=== PATIENT | female | born 1930 | race Caucasian/White ===

== ENCOUNTER 2016-06-14 13:00 | Outpatient (RCR) | payer MEDICARE, OTHER ==
--- OUTSIDE RECORDS SUMMARY | 2016-03-27 12:57 | XMS REPORT | Continuity of Care Document ---
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 Medications Current Home Medications Medication Dose Units Route Directions Days/Qty Instructions Start Date Linagliptin 5 Mg 5 Mg Oral Bedtime 01/27/16 Furosemide 20 Mg 20 Mg Oral Daily 01/27/16 Carvedilol 25 Mg 25 Mg Oral Twice A Day 01/27/16 Atorvastatin Calcium 80 Mg 80 Mg Oral Bedtime 01/27/16 Aspirin 81 Mg 81 Mg Oral Bedtime 01/29/16 Glimepiride 4 Mg 4 Mg Oral Daily 30 02/27/16 Celecoxib 100 Mg 100 Mg Oral Daily 30 02/28/16 Irbesartan 150 Mg 300 Mg Oral Daily 30 02/28/16 Past Home Medications Medication Directions Ordered Status Celecoxib 200 Mg Capsule, 200 Mg Oral Daily 01/27/16 Discontinued Irbesartan 150 Mg Tablet, 150 Mg Oral Daily 01/27/16 Discontinued Glimepiride 4 Mg Tablet, 4 Mg Oral Twice A Day 01/27/16 Discontinued Social History Social History Problem Response Recorded Date/Time Alcohol Use Denies Use 01/29/2016 2:20pm Recreational Drug Use No 01/29/2016 2:20pm Recent Foreign Travel No 01/29/2016 2:08pm Recent Infectious Disease Exposure No 01/29/2016 2:08pm Hospitalization with Isolation Denies 02/28/2016 10:57am Sexually Transmitted Disease No 01/29/2016 2:20pm Smoking Status Never a Smoker 01/29/2016 2:16pm Recent Hopitalizations No 01/29/2016 2:20pm Sexually Transmitted Disease No 01/29/2016 2:20pm Hospitalization with Isolation Denies 02/28/2016 10:57am Query Response Start Date Stop Date Smoking Status Never a Smoker Hospital Discharge Instructions No hospital discharge instructions. Plan of Care Discharge Date 02/28/16 10:47am Disposition 09 ADMITTED INPATIENT Instructions/Education Provided Diabetes Type 2 (DC) Right-Side Stroke (DC) Forms Provided Rehab Team Conference Summary Prescriptions See Medication Section Referrals NOLVIA ROBERTO MD (Unspecified) - 03/06/16 Address: [address] [place] [address], [address] [place] [phone] Reason(s) for Referral: Follow-up with Dr. Roberto on 2015 at 10:00 AM. (Physical Medicine and Rehab) - (Physical Medicine and Rehab) - (Unspecified) - Care Plan and Goals Functional Status Query Response Date Recorded Patient Orientation Normal For Age February 27, 2016 1:38pm Patient Orientation Person Place Time Situation Eyes Open February 28, 2016 10:57am Comprehension Ability Understands Concepts February 28, 2016 8:00am Allergies, Adverse Reactions, Alerts Allergen Type Severity Reaction Status Last Updated Codeine Allergy Unknown NAUSEA Active 01/27/16 Immunizations No immunization records. Vital Signs Acute Vital Signs Vital Response Date/Time Temperature (Fahrenheit) 97.5 degrees F (97.6 - 99.5) 02/28/2016 10:50am Temperature (Calculated Celsius) 36.39290 degrees C (36.4 - 37.5) 02/28/2016 5:23am Temperature Source Tympanic 02/28/2016 10:50am Pulse Rate (adult) 73 bpm (60 - 90) 02/28/2016 10:50am Respiratory Rate 18 bpm (12 - 24) 02/28/2016 10:50am O2 Sat by Pulse Oximetry 94 % (88 - 100) 02/28/2016 10:50am Blood Pressure 103/66 mm Hg 02/28/2016 10:50am Blood Pressure Mean 103 mm Hg 02/28/2016 5:23am Pain Numeric Pain Scale 0-No Pain 02/28/2016 10:50am Height (Feet) 5 feet 01/29/2016 2:08pm Height (Inches) 5.00 inches 01/29/2016 2:08pm Height (Calculated Centimeters) 165.234164 cm 01/29/2016 2:08pm Weight (Pounds) 190 pounds 02/26/2016 5:53am Weight (Ounces) 2.0 oz 02/19/2016 6:00am Weight (Calculated Grams) 61807.551 gm 02/26/2016 5:53am Weight (Calculated Kilograms) 86.667768 kilograms 02/26/2016 5:53am Calculated BMI 31.3 01/29/2016 2:08pm Capillary Refill Capillary Refill Less Than 3 Seconds 01/29/2016 8:20am Results Laboratory Results Test Name Result Units Flags Reference Collection Date/Time Result Date/ Time Comments White Blood Count 7.5 10^3/uL 4.3-11.0 01/27/2016 10:50am 01/27/2016 11 :01am Red Blood Count 4.93 10^6/uL 4.35-5.85 01/27/2016 10:50am 01/27/2016 11 :01am Hemoglobin 14.0 G/DL 11.5-16.0 01/27/2016 10:50am 01/27/2016 11:01am Hematocrit 42 % 35-52 01/27/2016 10:50am 01/27/2016 11:01am Mean Corpuscular Volume 85 FL 80-99 01/27/2016 10:50am 01/27/2016 11: 01am Mean Corpuscular Hemoglobin 28 PG 25-34 01/27/2016 10:50am 01/27/2016 11:01am Mean Corpuscular Hemoglobin Concent 33 G/DL 32-36 01/27/2016 10:50am 11:01am Red Cell Distribution Width 13.9 % 10.0-14.5 01/27/2016 10:50am 2015 11:01am Platelet Count 267 10^3/uL 130-400 01/27/2016 10:50am 01/27/2016 11: 01am Mean Platelet Volume 10.2 FL 7.4-10.4 01/27/2016 10:50am 01/27/2016 11: 01am Neutrophils (%) (Auto) 68 % 42-75 01/27/2016 10:50am 01/27/2016 11: 01am Lymphocytes (%) (Auto) 20 % 12-44 01/27/2016 10:50am 01/27/2016 11: 01am Monocytes (%) (Auto) 8 % 0-12 01/27/2016 10:50am 01/27/2016 11:01am Eosinophils (%) (Auto) 4 % 0-10 01/27/2016 10:50am 01/27/2016 11:01am Basophils (%) (Auto) 1 % 0-10 01/27/2016 10:50am 01/27/2016 11:01am Neutrophils # (Auto) 5.1 X 10^3 1.8-7.8 01/27/2016 10:50am 01/27/2016 11:01am Lymphocytes # (Auto) 1.5 X 10^3 1.0-4.0 01/27/2016 10:50am 01/27/2016 11:01am Monocytes # (Auto) 0.6 X 10^3 0.0-1.0 01/27/2016 10:50am 01/27/2016 11: 01am Eosinophils # (Auto) 0.3 10^3/uL 0.0-0.3 01/27/2016 10:50am 01/27/2016 11:01am Basophils # (Auto) 0.0 10^3/uL 0.0-0.1 01/27/2016 10:50am 01/27/2016 11 :01am Prothrombin Time 13.1 SEC 12.2-14.7 01/27/2016 10:50am 01/27/2016 11: 11am INR Comment 1.0 0.8-1.4 01/27/2016 10:50am 01/27/2016 11:11am INTERPRETIVE DATA SUGGESTED THERAPEUTIC RANGE FOR INR'S: VENOUS THROMBOSIS, PULMONARY EMBOLISM, OR PREVENTION OF SYSTEMIC EMBOLISM (EG. IN ATRIAL FIBRILLATION): 2.0 - 3.0 MECHANICAL PROSTHETIC HEART VALVES: 2.5 - 3.5* *NOTE: INR'S UP TO 4.5 MAY BE NECESSARY IN SELECTED GROUPS OF HIGH RISK PATIENTS. [employer] CONSENSUS CONFERENCE ON ANTITHROMBOTIC THERAPY (2000). Activated Partial Thromboplast Time 27 SEC 24-35 01/27/2016 10:50am 02/2016 11:11am D-Dimer 1.86 UG/ML H 0.00-0.49 01/27/2016 10:50am 01/27/2016 11:17am Urine Color YELLOW 01/27/2016 11:00am 01/27/2016 11:17am Urine Clarity CLEAR 01/27/2016 11:00am 01/27/2016 11:17am Urine pH 5 5-9 01/27/2016 11:00am 01/27/2016 11:17am Urine Specific [place] 1.010 * 1.016-1.022 01/27/2016 11:00am 2015 11:17am Urine Protein NEGATIVE NEGATIVE 01/27/2016 11:00am 01/27/2016 11: 17am Urine Glucose (UA) NEGATIVE NEGATIVE 01/27/2016 11:00am 01/27/2016 11 :17am Urine RBC (Auto) 1+ * NEGATIVE 01/27/2016 11:00am 01/27/2016 11:17am Urine Ketones NEGATIVE NEGATIVE 01/27/2016 11:00am 01/27/2016 11: 17am Urine Nitrite NEGATIVE NEGATIVE 01/27/2016 11:00am 01/27/2016 11: 17am Urine Bilirubin NEGATIVE NEGATIVE 01/27/2016 11:00am 01/27/2016 11: 17am Urine Urobilinogen NORMAL MG/DL NORMAL 01/27/2016 11:00am 01/27/2016 11 :17am Urine Leukocyte Esterase NEGATIVE NEGATIVE 01/27/2016 11:00am 2015 11:17am Urine RBC 0-2 /HPF 01/27/2016 11:00am 01/27/2016 11:17am Urine WBC 2-5 /HPF 01/27/2016 11:00am 01/27/2016 11:17am Urine Bacteria LARGE /HPF * 01/27/2016 11:00am 01/27/2016 11:17am Urine Crystals NONE /LPF 01/27/2016 11:00am 01/27/2016 11:17am Urine Casts NONE /LPF 01/27/2016 11:00am 01/27/2016 11:17am Urine Mucus NEGATIVE /LPF 01/27/2016 11:00am 01/27/2016 11:17am Urine Culture Indicated YES 01/27/2016 11:00am 01/27/2016 11:17am Sodium Level 138 MMOL/L 135-145 01/27/2016 10:50am 01/27/2016 11:20am Potassium Level 4.7 MMOL/L 3.6-5.0 01/27/2016 10:50am 01/27/2016 11: 20am Chloride Level 105 MMOL/L 98-107 01/27/2016 10:50am 01/27/2016 11:20am Carbon Dioxide Level 22 MMOL/L 21-32 01/27/2016 10:50am 01/27/2016 11: 20am Anion Gap 11 MMOL/L 5-14 01/27/2016 10:50am 01/27/2016 11:20am Blood Urea Nitrogen 24 MG/DL H 7-18 01/27/2016 10:50am 01/27/2016 11: 20am Creatinine 1.32 MG/DL H 0.60-1.30 01/27/2016 10:50am 01/27/2016 11:20am BUN/Creatinine Ratio 18 01/27/2016 10:50am 01/27/2016 11:20am Estimat Glomerular Filtration Rate 38 01/27/2016 10:50am 2015 11:20am GFR INTERPRETIVE DATA UNITS FOR ESTIMATED GFR (eGFR): mL/min/1.73 M2 REFERENCE RANGE FOR ESTIMATED GFR (eGFR) eGFR NORMAL eGFR >60 MODERATELY DECREASED eGFR 30-59 SEVERLY DECREASED eGFR 15-29 KIDNEY FAILURE <15 (OR DIALYSIS) Glucose Level 289 MG/DL H 70-105 01/27/2016 10:50am 01/27/2016 11:20am Glucometer 188 MG/DL H 70-110 01/29/2016 5:09pm 01/29/2016 5:18pm Calcium Level 9.4 MG/DL 8.5-10.1 01/27/2016 10:50am 01/27/2016 11:20am Total Bilirubin 1.1 MG/DL H 0.1-1.0 01/27/2016 10:50am 01/27/2016 11: 20am Alkaline Phosphatase 71 U/L 40-136 01/27/2016 10:50am 01/27/2016 11: 20am Aspartate Amino Transf (AST/SGOT) 15 U/L 5-34 01/27/2016 10:50am 2015 11:20am Alanine Aminotransferase (ALT/SGPT) 17 U/L 0-55 01/27/2016 10:50am 02/2016 11:20am Troponin I < 0.30 NG/ML <0.30 01/27/2016 10:50am 01/27/2016 11:25am Total Protein 6.6 G/DL 6.4-8.2 01/27/2016 10:50am 01/27/2016 11:20am Albumin 4.0 G/DL 3.2-4.5 01/27/2016 10:50am 01/27/2016 11:20am Pending Laboratory Results Test Name Collection Date/Time Microbiology Results Procedure Source Result Collection Date/Time Result Date/Time Urine Culture Urine, Clean Catch ESCHERICHIA COLI 01/27/2016 11:00am 2015 11:49am Procedures Procedure Status Date Provider(s) Tracing only of electrocardiogram Completed 01/27/16 CONNOR HECTOR MD Color Doppler echocardiography Active 01/27/16 NOLVIA ROBERTO MD Encounters Encounter Location Arrival/Admit Date Discharge/Depart Date Attending Provider Discharged Inpatient [facility] 01/29/16 1:31pm 10:47am LUCY FERRER MD Discharged Inpatient [facility] 01/27/16 12:52pm 1:30pm NOLVIA ROBERTO MD
[~2016-06-14 13:00] MED LIST: ASPI-983 PO; ATOR80TA76 PO; CARV25TA PO; CELE-63 PO; CELE100C PO; FURO20TA4 PO; GLIM4TAB PO; IRBE150T26 PO; LINA5TAB PO
== END 2016-06-20 13:08 | disposition home or self-care (01) ==
PROVIDERS: ATTEND Internal Medicine
DX: I69.354 Hemiplegia and hemiparesis following cerebral infarction affecting left non-dominant side (principal)

== ENCOUNTER 2016-12-25 17:49 | Emergency (ER) | payer MEDICARE, OTHER ==
[~2016-12-25] VITALS: Ht 165.1 cm; Wt 83.9 kg
--- NOTE | 2016-12-25 18:55 | ED Upper Extremity ---
General Chief Complaint: Upper Extremity Stated Complaint: LT SHOULDER INJ Nursing Triage Note: ARRIVED VIA WC TO ROOM 01. COMPLAINS OF LEFT SHOULDER PAIN. STATES SHE DID NOT FALL BUT FELT A POP AND IT IMMEDIATELY STARTED HURTING. Nursing Sepsis Screen: No Definite Risk Source: patient, family Exam Limitations: no limitations History of Present Illness Time seen by provider: 18:54 Initial Comments To ER with reports of left shoulder pain. She states she was trying to get out of her chair at home when her left arm somehow became stuck behind her. She felt a pop and had immediate intense pain in the left arm. This caused an immediate pain which she states "made me yell oh Fuck! My daughter heard that and came running" When family arrived she was still laying with the left arm behind her in the chair. 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 Onset: this evening Severity: moderate Pain/Injury Location: left shoulder Method of Injury: twisted Modifying Factors: Worse With Movement Allergies and Home Medications Allergies Coded Allergies: codeine (Verified Allergy, Unknown, NAUSEA, 01/27/16) Home Medications Aspirin 81 Mg Tablet.dr, 81 MG PO HS, (Reported) Atorvastatin Calcium 80 Mg Tablet, 80 MG PO HS, (Reported) Carvedilol 25 Mg Tablet, 25 MG PO BID, (Reported) Celecoxib 100 Mg Capsule, 100 MG PO DAILY, #30 Ref 0 Prescribed by: ROCCO MENCHACA on 02/28/16 1021 Furosemide 20 Mg Tablet, 20 MG PO DAILY, (Reported) Glimepiride 4 Mg Tablet, 4 MG PO DAILY, #30 Prescribed by: NOLVIA MCCOLLUM on 02/27/16 0923 Hydrocodone/Acetaminophen 1 Each Tablet, 0.5-1 EACH PO Q6H PRN for PAIN-SEVERE, #30 Prescribed by: ERYN ROSARIO on 12/25/16 1916 Irbesartan 150 Mg Tablet, 300 MG PO DAILY, #30 Prescribed by: ROCCO MENCHACA on 02/28/16 1021 Linagliptin 5 Mg Tablet, 5 MG PO HS, (Reported) Constitutional: see HPI EENTM: see HPI Respiratory: no symptoms reported Cardiovascular: no symptoms reported Musculoskeletal: see HPI Skin: no symptoms reported Psychiatric/Neurological: No Symptoms Reported Past [id number] Hx Patient Social History Alcohol Use: Denies Use Recreational Drug Use: No Smoking Status: Former Smoker Recent Foreign Travel: No Contact w/Someone Who Travel: No Recent Infectious Disease Expo: No Recent Hopitalizations: No Immunizations Up To Date Tetanus Booster (TDap): Unknown Date of Pneumonia Vaccine: Dec 15, 2014 Date of Influenza Vaccine: Jan 09, 2016 Seasonal Allergies Seasonal Allergies: No Surgeries History of Surgeries: Yes (CARDIAC STENT, CAROTID. KNEE REPAIR. ) Respiratory History of Respiratory Disorde: No Cardiovascular History of Cardiac Disorders: Yes (CAROTID. STENT LAD) Cardiac Disorders: Cardiomyopathy, Coronary Artery Disease, High Cholesterol, Hypertension Neurological History of Neurological Disord: Yes (STROKE THIS ADMISSION) Reproductive System Hx Reproductive Disorders: No Sexually Transmitted Disease: No Gastrointestinal History of Gastrointestinal Di: No Musculoskeletal History of Musculoskeletal Dis: Yes Musculoskeletal Disorders: Arthritis Endocrine History of Endocrine Disorders: Yes Endocrine Disorders: Diabetes, Non-Insulin dep HEENT HEENT Disorders: Cataract Hearing Impairment: Denies Cancer History of Cancer: No Psychosocial History of Psychiatric Problem: No Integumentary History of Skin or Integumenta: No Blood Transfusions History of Blood Disorders: No Adverse Reaction to a Blood Tr: No Family Medical History Family Medial History: Cardiovascular disease 19 FATHER Cervical cancer G8 SISTER Physical Exam Vital Signs Vital Sign - Last 12Hours 12/25/16 18:46 Temp 98.0 Pulse 74 Resp 18 B/P (MAP) 146/82 Pulse Ox 90 Capillary Refill : Less Than 3 Seconds General Appearance: WD/WN, no apparent distress HEENT: PERRL/EOMI, normal ENT inspection Neck: non-tender, full range of motion Respiratory: no respiratory distress, no accessory muscle use Gastrointestinal: normal bowel sounds, non tender, soft Shoulder: limited ROM, pain, soft tissue tenderness, swelling Elbow/Forearm: normal inspection, non-tender, Left Wrist: Yes normal inspection, Yes non-tender Hand: normal inspection, non-tender, Left Neurologic/Psychiatric: alert, normal mood/affect, oriented x 3 Skin: normal color, warm/dry Progress/Results/Core Measures Results/Orders Lab Results Laboratory Tests Test 12/25/16 19:05 Range/Units White Blood Count 13.0 H 4.3-11.0 10^3/uL Red Blood Count 4.52 4.35-5.85 10^6/uL Hemoglobin 12.2 11.5-16.0 G/DL Hematocrit 38 35-52 % Mean Corpuscular Volume 84 80-99 FL Mean Corpuscular Hemoglobin 27 25-34 PG Mean Corpuscular Hemoglobin Concent 32 32-36 G/DL Red Cell Distribution Width 15.0 H 10.0-14.5 % Platelet Count 296 130-400 10^3/uL Mean Platelet Volume 10.0 7.4-10.4 FL Neutrophils (%) (Auto) 85 H 42-75 % Lymphocytes (%) (Auto) 7 L 12-44 % Monocytes (%) (Auto) 8 0-12 % Eosinophils (%) (Auto) 1 0-10 % Basophils (%) (Auto) 0 0-10 % Neutrophils # (Auto) 11.0 H 1.8-7.8 X 10^3 Lymphocytes # (Auto) 0.9 L 1.0-4.0 X 10^3 Monocytes # (Auto) 1.0 0.0-1.0 X 10^3 Eosinophils # (Auto) 0.1 0.0-0.3 10^3/uL Basophils # (Auto) 0.0 0.0-0.1 10^3/uL Sodium Level 138 135-145 MMOL/L Potassium Level 4.6 3.6-5.0 MMOL/L Chloride Level 107 98-107 MMOL/L Carbon Dioxide Level 26 21-32 MMOL/L Anion Gap 5 5-14 MMOL/L Blood Urea Nitrogen 24 H 7-18 MG/DL Creatinine 1.13 0.60-1.30 MG/DL Estimat Glomerular Filtration Rate 46 BUN/Creatinine Ratio 21 Glucose Level 198 H 70-105 MG/DL Calcium Level 9.1 8.5-10.1 MG/DL My Orders Orders - ERYN ROSARIO APRN Saline Lock/Iv-Start (12/25/16 18:53) Cbc With Automated Diff (12/25/16 18:53) Basic Metabolic Panel (12/25/16 18:53) Fentanyl Injection (Sublimaze Injection (12/25/16 19:00) Shoulder, Left, 3 Views (12/25/16 18:55) Padded Arm Sling Large (12/25/16 19:42) Rx-Hydrocodone/Apap 5-325 Mg (Rx-Vicodin (12/25/16 19:45) Medications Given in ED Current Medications Medications Dose Ordered Sig/Mikey Route Start Time Stop Time Status Last Admin Dose Admin Fentanyl Citrate 25 mcg ONCE PRN IVP 12/25/16 19:00 12/25/16 19:10 25 MCG Vital Signs/I&O Vital Sign - Last 12Hours 12/25/16 18:46 Temp 98.0 Pulse 74 Resp 18 B/P (MAP) 146/82 Pulse Ox 90 Blood Pressure Mean: 103 Diagnostic Imaging Diagonstic Imaging: Xray Comments NAME: JESIKA JEFFERS [facility] REC#: [id number] PT STATUS: REG ER : 1932 PHYSICIAN: ERYN ROSARIO APRN ADMIT DATE: 12/25/16/ER Draft Date of Exam:12/25/16 SHOULDER, LEFT, 3 VIEWS EXAMINATION: Left shoulder at 7:00 p.m. INDICATION: Injury. Three views were obtained. FINDINGS: There is a slightly comminuted displaced fracture of the surgical neck of the humerus. The distal fracture fragment is displaced volarly and appears to overlie the humeral head fracture fragment by roughly 2 cm. The humeral head fracture fragment also appears to be slightly fractured. There is no sign of dislocation. There is no other fracture or acute bony abnormality noted. The soft tissues are unremarkable. IMPRESSION: 1. There is a complex displaced fracture involving the surgical neck of the humerus and the humeral head. If further imaging of the extent of the injury to the humeral head and proximal humerus is desired, then CT would be recommended. 2. There is no acute bony abnormality noted otherwise. Dictated on workstation # [id number] Dict: 12/25/161935 Trans: 12/25/161942 [id number] Interpreted by: ANA LAURA SANDRA MD Electronically signed by: Departure Communication (Admissions) Progress Notes 1911- I discussed the case with Dr. Hobson who is on-call for orthopedics [facility]. Recommends a sling, expect bruising and he will follow up with her in the clinic next week. 1947 currently rates her pain at 2 out of 10, smiling and states she feels well. She is ready to go home. I'll give her a take-home pack of Zofran and hydrocodone. She is distally neurovascularly intact. Able to wiggle all fingers. No swelling of the hand. No paresthesias or numbness. Impression Impression: Primary Impression: Humerus surgical neck fracture Disposition: HOME, SELF-CARE Condition: Stable Departure-Patient Inst. Decision time for Depature: 19:11 Referrals: MARBELLA URIAS MD, MARK D MD (PCP/Family) Primary Care Physician SONIA ZAVALA,KIARA TURNER,YULISA HOBSON,RUBEN LAGUNA,KIM GREGORY,GERMANIA Quintanilla MD Patient Instructions: How to Use a Shoulder Sling Add. Discharge Instructions: 1. Pain medication as directed. Beware, this may constipate you, so you should take an [id number] stool softener such as Colace 2. Call Dr. Hobson or an orthopedic surgeon of your choosing tomorrow. If you do choose to go with Dr. Hobson, he would like to see next week. If asked, this is a fracture of the left proximal humerus. All discharge instructions reviewed with patient and/or family. Voiced understanding. Scripts Hydrocodone/Acetaminophen ([place] 5-325 Tablet) 1 Each Tablet 0.5-1 EACH PO Q6H Y for PAIN-SEVERE, #30 TAB Prov: ERYN ROSARIO APRN 12/25/16 Copy Copies To 1: NOLVIA MCCOLLUM MD; RUBEN HOBSON MD, PETER J APRN Dec 25, 2016 18:55
[2016-12-25] MEDS ORDERED: fentaNYL INJECTION 100 MCG/2 ML AMP IVP PRN (19:00)
[2016-12-25] MEDS ORDERED: HYDR-757 PO (19:16)
[2016-12-25 19:18] LABS: BASOPHILS % (AUTO) 0 % (0-10); EOSINOPHILS # (AUTO) 0.1 10^3/uL (0.0-0.3); EOSINOPHILS % (AUTO) 1 % (0-10); LYMPHOCYTES # (AUTO) 0.9 X 10^3 (1.0-4.0); LYMPHOCYTES % (AUTO) 7 % (12-44); MEAN CORPUSCULAR HEMOGLOBIN 27 PG (25-34); MEAN CORPUSCULAR HGB CONC 32 G/DL (32-36); MEAN CORPUSCULAR VOLUME 84 FL (80-99); MONOCYTES % (AUTO) 8 % (0-12); NEUTROPHILS % (AUTO) 85 % (42-75); PLATELET COUNT 296 10^3/uL (130-400); RED BLOOD COUNT 4.52 10^6/uL (4.35-5.85)
[2016-12-25 19:34] LABS: CALCIUM 9.1 MG/DL (8.5-10.1); CREATININE SERUM 1.13 MG/DL (0.60-1.30); POTASSIUM 4.6 MMOL/L (3.6-5.0)
--- NOTE | 2016-12-25 19:43 | Diagnostic Imaging Report ---
EXAMINATION: Left shoulder at 7:00 p.m. INDICATION: Injury. Three views were obtained. FINDINGS: There is a slightly comminuted displaced fracture of the surgical neck of the humerus. The distal fracture fragment is displaced volarly and appears to overlie the humeral head fracture fragment by roughly 2 cm. The humeral head fracture fragment also appears to be slightly fractured. There is no sign of dislocation. There is no other fracture or acute bony abnormality noted. The soft tissues are unremarkable. IMPRESSION: 1. There is a complex displaced fracture involving the surgical neck of the humerus and the humeral head. If further imaging of the extent of the injury to the humeral head and proximal humerus is desired, then CT would be recommended. 2. There is no acute bony abnormality noted otherwise. Dictated by: Dictated on workstation # [id number]
[2016-12-25] MEDS ORDERED: RX-HYDROCODONE/APAP 5/325 MG #4 TAB PK PO PRN (19:45)
[2016-12-25] MEDS ORDERED: RX-ONDANSETRON 4 MG ODT (ZOFRAN) PPK #4 PO STA (19:49)
[2016-12-25 20:10] VITALS: BP 146/82
== END 2016-12-25 20:10 | disposition home or self-care (01) ==
LOC: EDUNIT# 17:49 → ER 17:50
DX: S42.212A Unspecified displaced fracture of surgical neck of left humerus, initial encounter for closed fracture (principal); E11.9 Type 2 diabetes mellitus without complications; I25.2 Old myocardial infarction; I25.10 Atherosclerotic heart disease of native coronary artery without angina pectoris; Z79.82 Long term (current) use of aspirin; Z87.891 Personal history of nicotine dependence; Z95.5 Presence of coronary angioplasty implant and graft; Z82.49 Family history of ischemic heart disease and other diseases of the circulatory system; Z80.49 Family history of malignant neoplasm of other genital organs; X50.0XXA Overexertion from strenuous movement or load, initial encounter
CPT/HCPCS: 36415; 73030; 80048; 85025

== ENCOUNTER 2017-03-25 10:15 | Outpatient (RCR) | payer MEDICARE, OTHER ==
[~2017-03-25 10:15] MED LIST changes: +HYDR-757 PO
== END 2017-04-01 10:22 | disposition home or self-care (01) ==
PROVIDERS: ATTEND Orthopaedic Surgery
DX: S42.212D Unspecified displaced fracture of surgical neck of left humerus, subsequent encounter for fracture with routine healing (principal); X50.0XXD Overexertion from strenuous movement or load, subsequent encounter